=== PATIENT | male | born 1980 | race Two or more races ===

== ENCOUNTER 2018-04-16 06:58 | Day surgery (SDC) | payer OTHER ==
[~2018-04-16 06:58] MED LIST: HYDRALAZINE HCL50 MG PO; VASOTEC20 M1 PO
[2018-04-16] MEDS ORDERED: PERCOCET 5-3251 EACH PO (08:27)
[2018-04-16] MEDS ORDERED: COLACE100 MG PO (08:27)
== END 2018-04-16 13:35 | disposition home or self-care (01) ==
LOC: CIR.AMB 06:58
DX: K60.1 Chronic anal fissure (principal); K62.89 Other specified diseases of anus and rectum